=== PATIENT | male | born 1980 | race Two or more races ===

== ENCOUNTER 2019-05-08 22:30 | Emergency (ER) | payer OTHER ==
[~2019-05-08] VITALS: Ht 177.8 cm; Wt 101.6 kg
[2019-05-08] MEDS ORDERED: ALBUTEROL0.63 MG/3 (22:51)
[2019-05-09] MEDS ORDERED: ALBUTEROL2.5 MG/3 M IH (02:41)
[2019-05-09] MEDS ORDERED: ZYNCOF 20-400120 ML PO (02:41)
[2019-05-09] MEDS ORDERED: SINGULAIR10 MG PO (02:41)
== END 2019-05-09 02:53 | disposition home or self-care (01) ==
LOC: ER 22:30
DX: J45.998 Other asthma (principal); J32.8 Other chronic sinusitis